=== PATIENT | female | born 1990 | race Caucasian/White ===

== ENCOUNTER → 2022-03-28 11:58 | Outpatient (BNVA) | payer MEDICAID, SELFPAY | PROVIDERS: Visit Provider Nurse Practitioner Family | DX: J02.9 Acute pharyngitis, unspecified (principal) | CPT/HCPCS: 87071; 87880 ==

== ENCOUNTER 2022-04-18 23:40 | Emergency (ER) | payer MEDICAID, SELFPAY ==
[2022-04-18 23:51] VITALS: BMI 52.7
[2022-04-18 23:55] VITALS: BP 115/73; PULSE 123; RESP 16; TEMP 38.3; O2SAT 95
--- NOTE | 2022-04-19 00:10 | W.ED.NAVMDI ---
HPI - Nausea/Vomiting/Diarrhea General: Chief complaint: Nausea/Vomiting/Diarrhea Stated complaint: Fever\V\Diarh Time Seen by Provider: 04/18/22 23:51 History of Present Illness: 31-year-old female comes in today with complaints of nausea vomiting diarrhea and chills starting this morning about 11:00. Patient denies any blood in the vomit or stool. Patient appears nontoxic. Patient had called out of work and was recommended to be evaluated in the ER for work note. 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 Associated nausea: Yes Associated symtoms: Reports nausea; Denies chest pain Review of Systems Const: Reports: fever(s) Card: Denies: chest pain Resp: Denies: dyspnea GI: Reports: nausea, vomiting and diarrhea Skin/Breast: Denies: rash [facility] ED Female Reproductive History: Date of last menstrual period: 03/30/22 Physical Exam Const: COMMON NORMALS: alert HENMT: COMMON NORMALS: normocephalic HEAD & SCALP: normocephalic MOUTH: Normal oral and palatal mucosa present Neck/C-Spine: COMMON NORMALS: full ROM and no meningeal signs Resp: COMMON NORMALS: normal respiratory effort and clear to auscultation bilaterally AUSCULTATION: clear to auscultation bilaterally Cardio: COMMON NORMALS: regular rhythm, S1 normal heart sound present and S2 normal heart sound present RATE: tachycardic RHYTHM: regular rhythm HEART SOUNDS: S1 normal heart sound present and S2 normal heart sound present GI: COMMON NORMALS: Soft to palpation AUSCULTATION: Yes Hyperactive bowel sounds present PALPATION: Yes Soft to palpation and No Tenderness to palpation present (GI) : COMMON NORMALS: Yes no CVA tenderness BLADDER/KIDNEY EXAM: Yes no CVA tenderness Back/Pelvis: COMMON NORMALS: no CVA tenderness Extremity: COMMON NORMALS: full ROM and no pedal edema Neuro: SENSORIUM/ORIENTATION: Yes alert MENINGEAL SIGNS: Yes no meningeal signs Skin: COMMON NORMALS: turgor normal GENERAL SKIN EXAM: turgor normal Course Vital Signs: Vital signs: Vital Signs Temperature 100.9 F H 04/18/22 23:55 Pulse Rate 123 H 04/18/22 23:55 Respiratory Rate 16 04/18/22 23:55 Blood Pressure 115/73 04/18/22 23:55 Pulse Oximetry 95 04/18/22 23:55 Oxygen Delivery Me thod 04/18/22 23:55 MDM - Nausea/Vomiting/Diarrhea Medical Decision Making 31-year-old female comes in today for complaints of nausea vomiting and diarrhea with fever. Patient denies any severe abdominal pain. Respirations are even lungs are clear to auscultation. Abdomen soft nontender. Skin is warm and dry. Vital signs are normal except for some elevation in pulse and temperature. Differential diagnosis includes gastroenteritis, dehydration, viral syndrome. No signs of serious illness was noted at this time. Reviewed exam with patient recommended Zofran for nausea and vomiting. Recommend acetaminophen or ibuprofen for pain and fever. Recommend follow-up with primary care for further instruction return to ED for new concerns. Patient reported understanding agreed to plan. Discharge Plan Discharge Patient Disposition: Home Clinical Impression: Gastroenteritis Condition: Stable Prescriptions: New ondansetron 4 mg tablet,disintegrating 4 mg PO Q8H PRN (Reason: nausea and vomiting) Qty: 6 0RF No Action metformin 500 mg tablet 500 mg PO DAILY amoxicillin-pot clavulanate 875-125 mg tablet 1 tab PO BID 7 Days Qty: 14 0RF Discharge Orders: Discharge ED (Routine); Ordered 04/19/22 Ordered By: Amilcar Pinzon Discharge Diet: Advance as tolerated Discharge Activity: Increase activity as tolerated Patient Instructions: Gastroenteritis (ED) Activity Restrictions/Additional Instructions: Home and rest. Drink plenty of fluids. Use acetaminophen or ibuprofen for pain and fever. In order to stay hydrated make sure he takes sips of fluid frequently. Use ondansetron 4 mg every 8 hours as needed to control nausea and vomiting. Most often viral gastroenteritis will last 48 to 72 hours. Fever usually breaks within the first 48 hours and diarrhea will usually clear within 72 hours. Follow-up with primary care as needed. Return to emergency department for worsening symptoms such as inability to hold fluids down, no urine output within 8 hours, blood in vomit or stool, severe abdominal pain. Stand Alone Forms: Work/School Release Coding Level of Care Code ED [employer] for [employer]
[2022-04-19] MEDS: ondansetron 4 MG Tablet PO (00:15)
== END 2022-04-19 00:19 | disposition home or self-care (01) ==
PROVIDERS: Emergency Provider Nurse Practitioner Family
DX: K52.9 Noninfective gastroenteritis and colitis, unspecified (principal)
CPT/HCPCS: 99283; Q0162